=== PATIENT | female | born 1975 | race Caucasian/White ===

== ENCOUNTER 2018-11-21 11:16 | Emergency (ER) | payer OTHER ==
[2018-11-21] MEDS ORDERED: NS 1,000 ML IV ONE (11:57)
[2018-11-21] MEDS ORDERED: fentaNYL 100 MCG/2 ML INJ IVP ONE (11:57)
[2018-11-21] MEDS ORDERED: IOPAMIDOL (ISOVUE-300) 100 ML BTL ONE (12:22)
--- NOTE | 2018-11-21 13:34 | EDPHY ---
H & P Stated Complaint: PT. sent from DR. Peterson for imaging and further eval,low abd pain weeks Time Seen by Provider: 11/21/18 11:29 HPI/ROS: CHIEF COMPLAINT: Lower abdominal pain HISTORY OF PRESENT ILLNESS: This is a 43-year-old female who was referred to the emergency department by Dr. Anastasiia Peterson. Patient has been seen in Dr. Peterson practice on October 28 with complaints of vaginal discharge and urinary dysuria. At that time she was diagnosed with bacterial vaginosis as well as a E coli urinary tract infection. She had a 5 day course of Macrobid followed by clindamycin gel. Patient reported that her vaginal discharge decreased but she continues to complain of increased vaginal wetness. Of note the patient is status post hysterectomy and bilateral salpingo-oophorectomy. She returned today to see Dr. Peterson with reports of nausea, dry heaves, and history of a fever yesterday. She has been complaining of generalized abdominal pain with more significant pain in the lower quadrants, right and left. Patient denies diarrhea. Denies a headache and lightheadedness. REVIEW OF SYSTEMS: A comprehensive 10 system review of systems was reviewed and is otherwise negative aside from elements mentioned in the history of present illness and medical decision making. PAST MEDICAL HISTORY: History of seizures, epilepsy, Vanessa's thyroiditis, migraines. SOCIAL HISTORY: Patient drinks no alcohol, uses no illicit substances. . VITAL SIGNS Reviewed by me. GENERAL: Signs of old facial trauma. Alert. Conversant. HEENT: No acute traumatic findings. Eyes: No icterus, no injection. Mouth: moist mucous membranes. No erythema or lesions. Neck: supple with no adenopathy. LUNGS: Clear to auscultation bilaterally, no wheezes, rhonchi or rales. CARDIAC: Regular rate and rhythm, no rubs, murmurs or gallops. ABDOMEN: Soft, diffuse tenderness throughout, moderate tenderness in the right lower quadrant and left lower quadrant. No rebound. Some voluntary guarding. Normal bowel sounds. BACK: Inconsistent left CVA tenderness. : Per Dr. Peterson, pelvic exam demonstrates right adnexal tenderness and a small amount of vaginal discharge. Blind vaginal vault. EXTREMITIES: No trauma. No edema. Range of motion is normal throughout. NEURO: Alert and oriented, grossly nonfocal. SKIN: Warm and dry, no rash. PSYCHIATRIC: Normal mentation, no agitation. - Personal History LMP (Females 10-55): Hysterectomy - Medical/Surgical History Other PMH: MEd hx-siezure,jaw. Zvta-ixeu-pcfeibic,rt knee,vagus nerve stimulator Constitutional: Initial Vital Signs Temperature (C) 36.5 C 11/21/18 11:27 Heart Rate 56 L 11/21/18 11:27 Respiratory Rate 16 11/21/18 11:27 Blood Pressure 98/60 L 11/21/18 11:27 O2 Sat (%) 96 11/21/18 11:27 O2 Delivery Mode Room Air Allergies/Adverse Reactions: aspirin Allergy (Severe, Verified 11/21/18 11:25) Anaphylaxis phenytoin [From Dilantin] Allergy (Severe, Verified 11/21/18 11:25) Anaphylaxis ibuprofen Allergy (Verified 11/21/18 11:25) Home Medications: Medication Instructions Recorded Acetaminophen with Codeine 1 each PO Q6 PRN #20 tab 11/21/18 [Tylenol #3] Clobazam [Onfi] 11/21/18 Estradiol 11/21/18 Gabapentin 11/21/18 Lamictal 11/21/18 Ondansetron Odt [Zofran Odt 4 mg 4 mg PO Q6 PRN #8 tab 11/21/18 (RX)] Vimpat 11/21/18 Zolpidem Tartrate 11/21/18 Medical Decision Making - Diagnostics Imaging Results: Imaging Impressions Abdomen CT 11/21/18 11:58 Impression: 1. Upper sigmoid colitis. There may be a benign mild stricture of the lower sigmoid.There is no evidence of more proximal obstruction. History history of ulcerative colitis? 2. Possible noncalcified cholelithiasis. 3. Atypical left iliac sclerosis of uncertain clinical significance. 4. Luminal contrast in the vagina raises the possibility of a rectovaginal fistula in this patient who has had a prior hysterectomy vs inserted vaginal material. Also discussed with Dr. Keys at 1:26 PM. General information for patients regarding this examination can be found at [email or web address]. If you have questions or comments about this report, please contact me at (hospital) or [phone] (cell). ED Course/Re-evaluation: 43-year-old female presents to the emergency department with bilateral lower quadrant abdominal discomfort. This is in the setting of having been treated for vaginal discharge, positive bacterial vaginosis, as well as being treated for a urinary tract infection. She is status post hysterectomy and bilateral oophorectomy has a blind vaginal pouch. Patient had a IV placed. She received a L normal saline. Laboratory evaluation: CBC: WBC of 2.9, normal electrolytes. CT scan abdomen pelvis performed with IV contrast. Reports me by Dr. Farias is demonstrating sigmoid colitis, no diverticulitis, appendix is not seen. There does appear to be a stricture versus spasm in the lower sigmoid area. Patient also has contrast verses another radio opaque material in the vagina. CT scan was reviewed by Dr. Mcadams. Patient herself does not report any foul smelling, brown vaginal discharge. She has not had recurrent episodes of colitis. At this point concern is for antibiotic associated colitis. Patient has not produced a stool sample here and has not been complaining of diarrhea. In fact she has been reporting some constipation. She has not had a fever here does not have elevated white count, although it is slightly low. Vital signs have been stable. Patient is quite anxious to be discharged as she needs to take her Lamictal at 1:00 p.m. and she does not have it with her. We do not have it available to us here at the [facility]. Plan was made for the patient to be discharged home with a specimen cup. She will return with a stool sample as soon as possible. GI pathogen panel has been ordered. Patient was given Tylenol No. 3 per her request as this seems to be the best for her for pain control. She was also given a prescription for Zofran. Patient will need to be followed up on Friday without fail at her primary care physician's office in order to discussed results of the stool studies. She does understand that we have not visualized the appendix. Appendicitis remains in the differential, however, less likely given a CT scan demonstrating colitis, as well as no secondary evidence of appendicitis on the CT scan. Differential Diagnosis: After obtaining the patient's history and performing an examination, differential diagnosis considered included but was not limited to appendicitis, diverticulitis, colitis, constipation, deep space abscess, rectovaginal fistula , vaginitis, urinary tract infections and other causes. - Data Points Laboratory Results: 11/21/18 11:59 POC Sodium 142 mEq/L mEq/L (135-145) POC Potassium 3.7 mEq/L mEq/L (3.3-5.0) POC Chloride 106.0 mEq/L mEq/L (97-110) POC Total CO2 23 mEq/L mEq/L (22-31) POC BUN 6 mg/dL L mg/dL (7-23) POC Creatinine 0.7 mg/dL mg/dL (0.6-1.0) POC Glucose 86 mg/dL mg/dL (70-100) POC Calcium 9.9 mg/dL mg/dL (8.5-10.4) POC Total Bilirubin 0.7 mg/dL mg/dL (0.1-1.4) POC AST 21 IU/L IU/L (14-46) POC ALT 19 IU/L IU/L (9-52) POC Alk Phosphatase 127 IU/L H IU/L (38-126) POC Total Protein 7.7 g/dL g/dL (6.3-8.2) POC Albumin 4.1 g/dL g/dL (3.5-5.0) Medications Given: Discontinued Medications Fentanyl (Sublimaze) 50 mcg IVP EDNOW ONE Stop: 11/21/18 11:58 Last Admin: 11/21/18 12:27 Dose: 50 mcg Sodium Chloride (Ns) 1,000 mls @ 0 mls/hr IV ONCE ONE; Wide Open PRN Reason: Protocol Stop: 11/21/18 11:58 Last Admin: 11/21/18 12:32 Dose: 1,000 mls Point of Care Test Results: CBC CBC Collection Date 11/21/18 CBC Collection Time 11:53 WBC 2.90 RBC 4.63 HGB 14.5 HCT 41.6 PLT 278 Neut # 1.22 Neut 42.1 LYMPH # 1.50 LYMPH 51.7 MCV 89.8 Chemistry 11/21/18 11:59 POC Sodium 142 mEq/L mEq/L (135-145) POC Potassium 3.7 mEq/L mEq/L (3.3-5.0) POC Chloride 106.0 mEq/L mEq/L (97-110) POC Total CO2 23 mEq/L mEq/L (22-31) POC BUN 6 mg/dL L mg/dL (7-23) POC Creatinine 0.7 mg/dL mg/dL (0.6-1.0) POC Glucose 86 mg/dL mg/dL (70-100) POC Calcium 9.9 mg/dL mg/dL (8.5-10.4) POC Total Bilirubin 0.7 mg/dL mg/dL (0.1-1.4) POC AST 21 IU/L IU/L (14-46) POC ALT 19 IU/L IU/L (9-52) POC Alk Phosphatase 127 IU/L H IU/L (38-126) POC Total Protein 7.7 g/dL g/dL (6.3-8.2) POC Albumin 4.1 g/dL g/dL (3.5-5.0) Departure - Departure Disposition: Home, Routine, Self-Care Clinical Impression: Colitis Abdominal pain Qualifiers: Abdominal location: lower abdomen, unspecified Qualified Code(s): R10.30 - Lower abdominal pain, unspecified Condition: Good Instructions: Acetaminophen/Codeine (By mouth), Ondansetron (By mouth), C Diff (Clostridium Difficile) Infection (ED), Colitis (ED) Additional Instructions: Your CT scan demonstrates inflammation of the sigmoid colon. This is called sigmoid colitis. Because you have recently been on antibiotics, we would be concerned that this colitis is related to antibiotic use. The most concerning type of antibiotic associated colitis is Clostridium difficile colitis. Please return with a stool sample as soon as possible. Please take this directly to the [facility] for further testing. In the meantime, I have given you a prescription of Tylenol No. 3 to use as needed for severe abdominal pain. This can cause constipation so be sure that your drinking plenty of fluid and take a stool softener as well if you think you becoming constipated. You may take Tylenol without codeine as needed for more mild pain. Be sure you do not take more than 3 g of Tylenol in a 24 hr period. You been given a prescription of Zofran to use as needed for dry heaves and nausea. Please follow up on Friday or Friday without fail with her primary care physician. They will be able to discuss the results of your stool studies. They will also be able to give you a referral to Gastroenterology if needed. Referrals: John Paul Feliciano DO [Primary Care Provider] - As per Instructions Anastasiia Peterson MD [Medical Doctor] - As per Instructions Prescriptions: Acetaminophen with Codeine [Tylenol #3] 1 each PO Q6 PRN #20 tab PRN Reason: Pain, Breakthrough Ondansetron Odt [Zofran Odt 4 mg (RX)] 4 mg PO Q6 PRN #8 tab PRN Reason: Nausea
[2018-11-21 14:25] VITALS: BP 103/61
== END 2018-11-21 14:15 | disposition home or self-care (01) ==
LOC: CED 11:16
DX: K52.9 Noninfective gastroenteritis and colitis, unspecified (principal); R10.30 Lower abdominal pain, unspecified; E86.9 Volume depletion, unspecified
CPT/HCPCS: 74177; 96361; 96374; 99285; J3010; Q9967; 80053-ER

== ENCOUNTER → 2018-12-21 | Outpatient (CLI) | payer OTHER | LOC: CIMAGING 12:04 | PROVIDERS: ATTEND Family Medicine | DX: R10.2 Pelvic and perineal pain (principal) | CPT/HCPCS: 72170-PO ==